=== PATIENT | male | born 2000 | race Caucasian/White ===

== ENCOUNTER 2022-06-06 15:09 | Emergency (ER) | payer SELFPAY ==
[~2022-06-06] VITALS: Ht 161.3 cm; Wt 87.5 kg
[2022-06-06 15:29] VITALS: BP 151/75
--- NOTE | 2022-06-06 15:32 | NUR ---
Jozef rea in [facility] - 06/06/22 at 1533 by [email or web address] PAUL
[2022-06-06] MEDS ORDERED: LIDOCAINE 2% 1000 MG/50 ML VIAL INJ ONE (17:10)
[2022-06-06] MEDS ORDERED: LIDOCAINE MPF 1% 10 MG/ML VIAL INJ ONE (17:20)
[2022-06-06] MEDS ORDERED: BACITRACIN OINT 500 UNITS/GM PKT TP ONE (18:00)
[2022-06-06] MEDS ORDERED: IBUP-2213 PO (18:03)
[2022-06-06] MEDS ORDERED: BACI1PAC6 TP (18:03)
[2022-06-06 18:17] VITALS: BP 154/83
--- NOTE | 2022-06-06 18:17 | NUR ---
Patient discharged with v/s stable. Written and verbal after care instructions given and explained. Patient alert, oriented and verbalized understanding of instructions. Ambulatory with steady gait. All questions addressed prior to discharge. ID band removed. Patient advised to follow up with PMD. Rx of Motrin and Bacitracin given. Patient educated on indication of medication including possible reaction and side effects. Opportunity to ask questions provided and answered.
== END 2022-06-06 18:17 | disposition home or self-care (01) ==
LOC: MED 15:09
DX: S61.211A Laceration without foreign body of left index finger without damage to nail, initial encounter (principal); X58.XXXA Exposure to other specified factors, initial encounter; Y93.89 Activity, other specified; Y92.89 Other specified places as the place of occurrence of the external cause; Y99.8 Other external cause status
CPT/HCPCS: 12002; 90471; 90715; 99283; J2001

== ENCOUNTER 2022-06-08 10:26 | Emergency (ER) | payer SELFPAY ==
[~2022-06-08] VITALS: Ht 160 cm; Wt 84.4 kg
[~2022-06-08 10:26] MED LIST: BACI1PAC6 TP; IBUP-2213 PO
[2022-06-08 10:35] VITALS: BP 133/96
--- NOTE | 2022-06-08 10:41 | NUR ---
21/M WALKED IN FOR A SUTURE RECHECK AFTER BEING PLACED 3 DAYS AGO ON LEFT HAND SECOND DIGIT. DENIES PAIN OR DISCOMFOR AT THIS TIME. NO SWELLING OR REDNESS NOTED. NO DRAINAGE NOTED. pmh: denies nka
[2022-06-08 10:42] VITALS: BP 130/87
--- NOTE | 2022-06-08 11:00 | NUR ---
Patient discharged with v/s stable. Written and verbal after care instructions given and explained. Patient verbalized understanding. Ambulatory with steady gait. All questions addressed prior to discharge. Advised to follow up with PMD.
== END 2022-06-08 11:00 | disposition home or self-care (01) ==
LOC: MED 10:26
DX: S61.211D Laceration without foreign body of left index finger without damage to nail, subsequent encounter (principal); Z48.02 Encounter for removal of sutures; X58.XXXD Exposure to other specified factors, subsequent encounter
CPT/HCPCS: 99281

== ENCOUNTER 2022-06-16 16:58 | Emergency (ER) | payer SELFPAY ==
[~2022-06-16] VITALS: Ht 175.3 cm; Wt 77.1 kg
[2022-06-16 17:19] VITALS: BP 140/71
--- NOTE | 2022-06-16 17:21 | NUR ---
PT HERE FOR SUTURE REMOVAL TO LEFT 4TH DIGIT
--- NOTE | 2022-06-16 18:26 | NUR ---
PTS LEFT INDEX FINGER WAS DRESSED WITH NON ADHERENT GAUZE STRIP AND WRAPPED IN ROLL OF GAUZE. FINGER SPLINT WAS ALSO PLACED AND WRAPPED WITH COBAN.
== END 2022-06-16 18:30 | disposition home or self-care (01) ==
LOC: MED 16:58
DX: S61.412D Laceration without foreign body of left hand, subsequent encounter (principal); Z48.02 Encounter for removal of sutures; X58.XXXD Exposure to other specified factors, subsequent encounter
CPT/HCPCS: 99281